=== PATIENT | female | born 1955 | race Caucasian/White ===

== ENCOUNTER 2018-04-02 19:29 | Emergency (ER) | payer OTHER ==
[~2018-04-02] VITALS: Ht 162.6 cm; Wt 84.0 kg
[~2018-04-02 19:29] MED LIST: AMI2 PO; ASPI-1159 PO; ATOR-2 PO; CARV3.1242 PO; CLOP75TA33 PO; FENO145 PO; FURO-151 PO; GLIM4TAB2 PO; LEVO50TA PO; LISI2.5T47 PO; METF500T PO; POTA10TA15 PO
[2018-04-02] MEDS ORDERED: PREDNISONE 20MG TABLET PO STA (22:04)
[2018-04-02] MEDS ORDERED: IPRATROPIUM/ALBUTEROL 0.5-3(2.5)MG/3ML NEB HHN ONE (22:15)
[2018-04-02 23:05] LABS: BASOPHILS % 0.9 % (0.0-2.0); EOSINOPHILS % 2.6 % (0.0-5.0); HEMATOCRIT. 30.5 % (36.0-48.0); LYMPHOCYTES % 28.5 % (20.0-50.0); MEAN CORPUSCULAR HEMOGLOBIN 26.6 pg (28.0-32.0); MEAN CORPUSCULAR VOLUME 81.6 fL (81.0-99.0); MEAN PLATELET VOLUME 9.6 fl (7.4-10.4); MONOCYTES % 7.2 % (2.0-8.0); NEUTROPHILS % 60.8 % (40.0-76.0); PLATELET 419 x1000/uL (130-400); RED BLOOD CELL COUNT 3.75 mill/uL (4.2-5.4); RED CELL DISTRIBUTION WIDTH 16.1 % (11.6-14.6)
[2018-04-02 23:09] LABS: CHLORIDE 101 mEq/L (98-107)
[2018-04-02 23:11] LABS: INR 1.1; PARTIAL THROMBOPLASTIN TIME 29.9 sec (23.4-31.0); PROTHROMBIN TIME 11.2 sec (9.1-11.1)
[2018-04-03 01:08] VITALS: BP 116/59
[2018-04-03 03:19] LABS: CLARITY URINE CLEAR (CLEAR); COLOR URINE YELLOW (YELLOW); KETONES URINE NEGATIVE (NEGATIVE); LEUKOCYTE ESTERASE URINE 2+ (NEGATIVE); NITRITE URINE NEGATIVE (NEGATIVE); OCCULT BLOOD URINE NEGATIVE (NEGATIVE); PROTEIN URINE NEGATIVE (NEGATIVE); SPECIFIC GRAVITY URINE 1.009 (1.005-1.030); UROBILINOGEN URINE 0.2 E.U./dL (0.2-1.0)
== END 2018-04-03 01:11 | disposition home or self-care (01) ==
LOC: ER 19:50
DX: J40 Bronchitis, not specified as acute or chronic (principal); E11.9 Type 2 diabetes mellitus without complications; I10 Essential (primary) hypertension; I25.10 Atherosclerotic heart disease of native coronary artery without angina pectoris; Z79.82 Long term (current) use of aspirin; Z79.899 Other long term (current) drug therapy; Z79.84 Long term (current) use of oral hypoglycemic drugs
CPT/HCPCS: 36415; 71045; 80053; 81003; 83880; 84484; 85025; 85610; 85730; 93005; 94640; 99284; J7512; J7620

== ENCOUNTER 2019-01-04 22:06 | Inpatient (IN) | payer OTHER ==
[~2019-01-04] VITALS: Ht 162.6 cm; Wt 86.2 kg
[~2019-01-04 22:06] MED LIST changes: -ASPI-1159 PO; +ASPI-1393 PO
[2019-01-04 23:50] LABS: BASOPHILS % 0.7 % (0.0-2.0); CHLORIDE 104 mEq/L (98-107); EOSINOPHILS % 0.5 % (0.0-5.0); HEMATOCRIT. 31.7 % (36.0-48.0); HEMOGLOBIN. 10.5 g/dL (12.0-16.0); LYMPHOCYTES % 11.1 % (20.0-50.0); MEAN CORPUSCULAR HEMOGLOBIN 27.8 pg (28.0-32.0); MEAN CORPUSCULAR VOLUME 84.3 fL (81.0-99.0); MEAN PLATELET VOLUME 10.6 fl (7.4-10.4); MONOCYTES % 5.1 % (2.0-8.0); NEUTROPHILS % 82.6 % (40.0-76.0); PLATELET 302 x1000/uL (130-400); RED BLOOD CELL COUNT 3.77 mill/uL (4.2-5.4); RED CELL DISTRIBUTION WIDTH 15.5 % (11.6-14.6)
[2019-01-05] MEDS ORDERED: FUROSEMIDE 20MG/2ML VIAL IVP NR (01:00)
[2019-01-05] MEDS ORDERED: MORPHINE SULFATE 2 MG/ML CPJ (NOT FOR IM USE) IV PRN (12:00)
[2019-01-05 15:40] VITALS: BP 130/53
[2019-01-05] MEDS ORDERED: CRES10 MT (16:02)
[2019-01-05] MEDS ORDERED: NON FORMULARY PATIENT HOME MED XX SCH ×2 (16:30→17:00)
[2019-01-05] MEDS ORDERED: DEXTROSE 50% WATER 50ML SYRINGE IV PRN (16:30)
[2019-01-05] MEDS ORDERED: CLONIDINE 0.1MG TABLET PO PRN (16:30)
[2019-01-05] MEDS: BLOOD SUGAR DIAGNOSTIC STRIP TEST SCH ×2 (17:43→21:11)
[2019-01-05] MEDS: INSULIN LISPRO 100 UNITS/ML SUBCUT SCH ×2 (17:43→21:40)
[2019-01-05] MEDS: CLOPIDOGREL 75MG TABLET PO SCH (18:03)
[2019-01-05] MEDS: FUROSEMIDE 40MG/4ML VIAL IVP SCH (18:04)
[2019-01-05] MEDS: ASPIRIN 81MG TABLET PO SCH (18:04)
[2019-01-05] MEDS: LISINOPRIL 2.5MG TABLET PO SCH (18:04)
[2019-01-05] MEDS: ENOXAPARIN 40MG/0.4ML SYR SUBCUT SCH (18:05)
[2019-01-05 20:00] VITALS: BP 134/58
[2019-01-05] MEDS: ACETAMINOPHEN 325MG TABLET PO PRN (20:29)
[2019-01-05] MEDS: CARVEDILOL 3.125 MG TABLET PO SCH (21:07)
[2019-01-05] MEDS: ATORVASTATIN CALCIUM 20MG TABLET PO SCH (21:08)
[2019-01-06] VITALS: BP 132/55
[2019-01-06 04:00] VITALS: BP 111/58
[2019-01-06] MEDS: HYDROCODONE/ACETAMINOPHEN 5/325MG TABLET PO PRN (04:50)
[2019-01-06 06:19] LABS: BASOPHILS % 0.5 % (0.0-2.0); EOSINOPHILS % 2.7 % (0.0-5.0); HEMATOCRIT. 27.6 % (36.0-48.0); HEMOGLOBIN. 9.3 g/dL (12.0-16.0); LYMPHOCYTES % 19.3 % (20.0-50.0); MEAN CORPUSCULAR VOLUME 83.1 fL (81.0-99.0); MEAN PLATELET VOLUME 10.2 fl (7.4-10.4); MONOCYTES % 5.7 % (2.0-8.0); NEUTROPHILS % 71.8 % (40.0-76.0); PLATELET 276 x1000/uL (130-400); RED BLOOD CELL COUNT 3.33 mill/uL (4.2-5.4)
[2019-01-06 06:42] LABS: CHLORIDE 105 mEq/L (98-107)
[2019-01-06 07:02] LABS: CREATINE KINASE 47 IU/L (26-192); LDL CHOLESTEROL 54 mg/dL (5-100)
[2019-01-06 07:03] LABS: HDL CHOLESTEROL 82 mg/dL (40-59)
[2019-01-06 07:07] LABS: CREATINE KINASE MB FRACTION < 1.0 ng/mL (0.5-3.6)
[2019-01-06 08:00] VITALS: BP 124/46
[2019-01-06] MEDS: INSULIN LISPRO 100 UNITS/ML SUBCUT SCH ×4 (08:10→21:00)
[2019-01-06] MEDS: BLOOD SUGAR DIAGNOSTIC STRIP TEST SCH ×4 (08:21→21:02)
[2019-01-06] MEDS: ASPIRIN 81MG TABLET PO SCH (09:24)
[2019-01-06] MEDS: LISINOPRIL 2.5MG TABLET PO SCH (09:24)
[2019-01-06] MEDS: GLIMEPIRIDE 2MG TABLET PO SCH (09:24)
[2019-01-06] MEDS: CLOPIDOGREL 75MG TABLET PO SCH (09:25)
[2019-01-06] MEDS: FENOFIBRATE NANOCRYSTALLIZED 145MG TABLET PO SCH (09:26)
[2019-01-06] MEDS: LEVOTHYROXINE SODIUM 50MCG TABLET PO SCH (09:26)
[2019-01-06] MEDS: FUROSEMIDE 40MG/4ML VIAL IVP SCH ×2 (09:26→17:39)
[2019-01-06] MEDS: AMIODARONE HCL 200 MG TABLET PO SCH (09:26)
[2019-01-06] MEDS: CARVEDILOL 3.125 MG TABLET PO SCH ×2 (09:26→20:55)
[2019-01-06] MEDS: AMOXICILLIN/POTASSIUM CLAVULANATE 875/125MG TAB PO SCH (11:20)
[2019-01-06] MEDS: ACETAMINOPHEN 325MG TABLET PO PRN (11:21)
[2019-01-06 12:00] VITALS: BP 117/37
[2019-01-06] MEDS ORDERED: POTASSIUM CHLORIDE 20MEQ TABLET SR PO NR (13:45)
[2019-01-06 16:00] VITALS: BP 102/46
[2019-01-06] MEDS: ENOXAPARIN 40MG/0.4ML SYR SUBCUT SCH (17:39)
[2019-01-06 20:00] VITALS: BP 112/57
[2019-01-06] MEDS: ATORVASTATIN CALCIUM 20MG TABLET PO SCH (20:55)
[2019-01-07] VITALS: BP 109/50
[2019-01-07] MEDS: AMOXICILLIN/POTASSIUM CLAVULANATE 875/125MG TAB PO SCH ×2 (00:14→13:50)
[2019-01-07 04:00] VITALS: BP 108/52
[2019-01-07 05:36] VITALS: BP 115/52
[2019-01-07] MEDS: HYDROCODONE/ACETAMINOPHEN 5/325MG TABLET PO PRN (06:20)
[2019-01-07 06:35] LABS: BASOPHILS % 0.8 % (0.0-2.0); EOSINOPHILS % 5.2 % (0.0-5.0); HEMATOCRIT. 29.4 % (36.0-48.0); HEMOGLOBIN. 9.8 g/dL (12.0-16.0); MEAN CORPUSCULAR HEMOGLOBIN 27.9 pg (28.0-32.0); MEAN CORPUSCULAR VOLUME 83.5 fL (81.0-99.0); MEAN PLATELET VOLUME 9.9 fl (7.4-10.4); MONOCYTES % 6.6 % (2.0-8.0); NEUTROPHILS % 62.4 % (40.0-76.0); PLATELET 300 x1000/uL (130-400); RED BLOOD CELL COUNT 3.52 mill/uL (4.2-5.4)
[2019-01-07] MEDS: BLOOD SUGAR DIAGNOSTIC STRIP TEST SCH ×2 (07:40→12:40)
[2019-01-07 08:00] VITALS: BP 137/57
[2019-01-07] MEDS: INSULIN LISPRO 100 UNITS/ML SUBCUT SCH ×2 (08:10→13:10)
[2019-01-07] MEDS: GLIMEPIRIDE 2MG TABLET PO SCH (08:45)
[2019-01-07] MEDS: LEVOTHYROXINE SODIUM 50MCG TABLET PO SCH (08:45)
[2019-01-07] MEDS: CLOPIDOGREL 75MG TABLET PO SCH (08:45)
[2019-01-07] MEDS: FENOFIBRATE NANOCRYSTALLIZED 145MG TABLET PO SCH (08:46)
[2019-01-07] MEDS: AMIODARONE HCL 200 MG TABLET PO SCH (08:46)
[2019-01-07] MEDS: FUROSEMIDE 40MG/4ML VIAL IVP SCH (08:46)
[2019-01-07] MEDS: CARVEDILOL 3.125 MG TABLET PO SCH (08:46)
[2019-01-07] MEDS: LISINOPRIL 2.5MG TABLET PO SCH (08:46)
[2019-01-07] MEDS: ASPIRIN 81MG TABLET PO SCH (08:47)
[2019-01-07] MEDS ORDERED: POTASSIUM CHLORIDE 20MEQ TABLET SR PO SCH (09:00)
[2019-01-07 09:26] LABS: CHLORIDE 106 mEq/L (98-107)
[2019-01-07 12:00] VITALS: BP 106/52
[2019-01-07 15:11] VITALS: BP 108/52
== END 2019-01-07 16:10 | disposition home or self-care (01) | DRG 291 ==
LOC: ER 22:06 → 7WST 01-05 02:12 → EDBEDREQ 01-05 02:14 → EDBEDREQTM 01-05 02:14 → ENRESERV 01-05 14:50
PROVIDERS: ADMIT Internal Medicine; ATTEND Internal Medicine
DX: I11.0 Hypertensive heart disease with heart failure (principal); I50.21 Acute systolic (congestive) heart failure; E46 Unspecified protein-calorie malnutrition; E03.9 Hypothyroidism, unspecified; E11.9 Type 2 diabetes mellitus without complications; E78.5 Hyperlipidemia, unspecified; E87.5 Hyperkalemia; I25.10 Atherosclerotic heart disease of native coronary artery without angina pectoris; E78.00 Pure hypercholesterolemia, unspecified; J40 Bronchitis, not specified as acute or chronic; Z95.1 Presence of aortocoronary bypass graft; Z79.899 Other long term (current) drug therapy; Z79.82 Long term (current) use of aspirin; Z79.84 Long term (current) use of oral hypoglycemic drugs; I25.2 Old myocardial infarction; Z68.32 Body mass index [BMI] 32.0-32.9, adult
CPT/HCPCS: 36415; 71045; 80048; 80061; 82550; 82553; 82962; 83735; 83880; 84443; 84484; 85379; 93005; 99285; J1650; J1815; J1940; J2270

== ENCOUNTER 2020-01-04 11:46 | Inpatient (IN) | payer MEDICAID, OTHER ==
[~2020-01-04] VITALS: Ht 160 cm; Wt 92.1 kg
[~2020-01-04 11:46] MED LIST changes: -ASPI-1393 PO; +ASPI-1497 PO; -ATOR-2 PO; +CRES10 MT; -FURO-151 PO; -GLIM4TAB2 PO; +GLIM4TAB36 PO; -POTA10TA15 PO
[2020-01-04 12:39] LABS: HEMATOCRIT. 33.6 % (36.0-48.0); HEMOGLOBIN. 10.9 g/dL (12.0-16.0); MEAN CORPUSCULAR HEMOGLOBIN 26.6 pg (28.0-32.0); MEAN CORPUSCULAR VOLUME 82.3 fL (81.0-99.0); MEAN PLATELET VOLUME 9.8 fl (7.4-10.4); PLATELET 320 x1000/uL (130-400); RED BLOOD CELL COUNT 4.09 mill/uL (4.2-5.4); RED CELL DISTRIBUTION WIDTH 15.3 % (11.6-14.6)
[2020-01-04 12:50] LABS: CHLORIDE 100 mEq/L (98-107)
[2020-01-04] MEDS ORDERED: FUROSEMIDE 40MG/4ML VIAL IVP ONE (13:15)
[2020-01-04 13:43] LABS: PLATELET ESTIMATE NORMAL
[2020-01-04] MEDS ORDERED: IPRATROPIUM BROMIDE (0.02%) 0.5MG/2.5ML NEB HHN STA (14:42)
[2020-01-04] MEDS ORDERED: ALBUTEROL (0.083%) 2.5MG/3ML NEB HHN STA (14:42)
[2020-01-04] MEDS: ASPIRIN 81MG TABLET PO SCH (16:41)
[2020-01-04] MEDS: CLOPIDOGREL 75MG TABLET PO SCH (16:41)
[2020-01-04] MEDS: LISINOPRIL 2.5MG TABLET PO SCH (17:00)
[2020-01-04] MEDS: FUROSEMIDE 40MG/4ML VIAL IVP SCH (17:07)
[2020-01-04] MEDS ORDERED: GUAIFENESIN 200MG/10ML SUGAR FREE UDC PO PRN (17:30)
[2020-01-04] MEDS ORDERED: MAGNESIUM/ALUMINUM HYDROXIDE/SIMETHICONE 30ML UDC PO PRN (17:30)
[2020-01-04] MEDS ORDERED: NA PHOS,M-B/NA PHOS,DI-BA ENEMA 118ML PR PRN (17:30)
[2020-01-04] MEDS ORDERED: IPRATROPIUM/ALBUTEROL 0.5-3(2.5)MG/3ML NEB NEB PRN (17:30)
[2020-01-04] MEDS ORDERED: DOCUSATE SODIUM 100MG CAPSULE PO PRN (17:30)
[2020-01-04] MEDS ORDERED: DIPHENHYDRAMINE 50MG/ML VIAL IV PRN (17:30)
[2020-01-04] MEDS ORDERED: ONDANSETRON HCL 4MG/2ML INJ IV PRN (17:30)
[2020-01-04] MEDS: METHYLPREDNISOLONE SOD SUCC 125 MG/2 ML VIAL IV SCH (17:30)
[2020-01-04] MEDS ORDERED: LORAZEPAM 2MG/ML CPJ IV PRN (17:30)
[2020-01-04] MEDS ORDERED: MORPHINE SULFATE 2 MG/ML CPJ (NOT FOR IM USE) IV PRN (17:30)
[2020-01-04] MEDS ORDERED: ACETAMINOPHEN 325MG TABLET PO PRN (17:30)
[2020-01-04] MEDS ORDERED: HYDROCODONE/ACETAMINOPHEN 5/325MG TABLET PO PRN (17:30)
[2020-01-04] MEDS ORDERED: CLONIDINE 0.1MG TABLET PO PRN (17:30)
[2020-01-04] MEDS ORDERED: LEVOFLOXACIN 500MG PREMIX 100 ML IV SCH (18:00)
[2020-01-04] MEDS: CARVEDILOL 3.125 MG TABLET PO SCH (21:00)
[2020-01-04] MEDS: ENOXAPARIN 30MG/0.3ML SYR SUBCUT SCH (21:33)
[2020-01-04 22:15] VITALS: BP 129/61
[2020-01-04] MEDS ORDERED: EZET1TAB MT (23:59)
[2020-01-04] MEDS ORDERED: FENO145 MT (23:59)
[2020-01-05] VITALS: BP 113/55
[2020-01-05] MEDS ORDERED: FURO40TA5 PO (00:01)
[2020-01-05] MEDS ORDERED: POTA-9 MT (00:02)
[2020-01-05] MEDS: METHYLPREDNISOLONE SOD SUCC 125 MG/2 ML VIAL IV SCH ×2 (00:14→05:05)
[2020-01-05] MEDS ORDERED: DEXTROSE 50% WATER 50ML SYRINGE IV PRN (02:45)
[2020-01-05 04:00] VITALS: BP 111/46
[2020-01-05] MEDS: BLOOD SUGAR DIAGNOSTIC STRIP TEST SCH ×2 (06:30→11:40)
[2020-01-05] MEDS: INSULIN LISPRO 100 UNITS/ML SUBCUT SCH ×2 (06:37→12:23)
[2020-01-05] MEDS: FUROSEMIDE 40MG/4ML VIAL IVP SCH (06:38)
[2020-01-05 07:31] LABS: HEMATOCRIT. 30.1 % (36.0-48.0); HEMOGLOBIN. 9.9 g/dL (12.0-16.0); MEAN PLATELET VOLUME 10.4 fl (7.4-10.4); PLATELET 286 x1000/uL (130-400); RED BLOOD CELL COUNT 3.67 mill/uL (4.2-5.4); RED CELL DISTRIBUTION WIDTH 15.4 % (11.6-14.6)
[2020-01-05 07:46] LABS: CHLORIDE 99 mEq/L (98-107)
[2020-01-05 07:55] LABS: LDL CHOLESTEROL 55 mg/dL (5-100)
[2020-01-05 07:56] LABS: HDL CHOLESTEROL 98 mg/dL (40-59); T4 FREE 1.65 ng/dL (0.76-1.46)
[2020-01-05 08:00] VITALS: BP 114/44
[2020-01-05] MEDS: CARVEDILOL 3.125 MG TABLET PO SCH (08:31)
[2020-01-05] MEDS: LISINOPRIL 2.5MG TABLET PO SCH (08:31)
[2020-01-05] MEDS: ASPIRIN 81MG TABLET PO SCH (08:31)
[2020-01-05] MEDS: CLOPIDOGREL 75MG TABLET PO SCH (08:31)
[2020-01-05] MEDS: ENOXAPARIN 30MG/0.3ML SYR SUBCUT SCH (08:32)
[2020-01-05] MEDS ORDERED: ASPIRIN 81MG EC TABLET PO SCH (09:00)
[2020-01-05 10:47] LABS: PLATELET ESTIMATE NORMAL
[2020-01-05 12:00] VITALS: BP 121/45
[2020-01-05 13:20] VITALS: BP 121/45
[2020-01-05] MEDS ORDERED: LEVOFLOXACIN 500MG PREMIX 100 ML IV SCH (18:00)
[2020-01-06] MEDS ORDERED: LEVOFLOXACIN 500MG TABLET PO SCH (11:00)
== END 2020-01-05 14:20 | disposition home or self-care (01) | DRG 133 ==
LOC: ER 11:54 → 5WST 15:32 → ENRESERV 21:41
PROVIDERS: ADMIT Internal Medicine; ATTEND Internal Medicine
DX: J96.00 Acute respiratory failure, unspecified whether with hypoxia or hypercapnia (principal); J44.1 Chronic obstructive pulmonary disease with (acute) exacerbation; I50.33 Acute on chronic diastolic (congestive) heart failure; R65.10 Systemic inflammatory response syndrome (SIRS) of non-infectious origin without acute organ dysfunction; E78.5 Hyperlipidemia, unspecified; E03.9 Hypothyroidism, unspecified; I11.0 Hypertensive heart disease with heart failure; E11.9 Type 2 diabetes mellitus without complications; I25.10 Atherosclerotic heart disease of native coronary artery without angina pectoris; I25.5 Ischemic cardiomyopathy; Z82.3 Family history of stroke; Z82.49 Family history of ischemic heart disease and other diseases of the circulatory system; Z95.1 Presence of aortocoronary bypass graft; Z79.82 Long term (current) use of aspirin; Z79.84 Long term (current) use of oral hypoglycemic drugs; Z79.899 Other long term (current) drug therapy; Z98.51 Tubal ligation status
CPT/HCPCS: 36415; 71045; 71046; 80048; 80053; 80061; 82962; 83036; 83735; 83880; 84439; 84443; 84484; 85025; 93005; 93306; J1200; J1650; J1815; J1940; J1956; J2930

== ENCOUNTER 2020-07-03 13:24 | Inpatient (IN) | payer MEDICAID, OTHER ==
[~2020-07-03] VITALS: Ht 160 cm; Wt 90.3 kg
[~2020-07-03 13:24] MED LIST changes: +EZET1TAB MT; +FURO40TA5 PO; +POTA-9 MT
[2020-07-03] MEDS ORDERED: IPRATROPIUM/ALBUTEROL 0.5-3(2.5)MG/3ML NEB HHN ONE (14:15)
[2020-07-03 14:49] LABS: BASOPHILS % 0.8 % (0.0-2.0); EOSINOPHILS % 2.7 % (0.0-5.0); HEMATOCRIT. 30.9 % (36.0-48.0); HEMOGLOBIN. 9.9 g/dL (12.0-16.0); LYMPHOCYTES % 25.5 % (20.0-50.0); MEAN CORPUSCULAR VOLUME 80.9 fL (81.0-99.0); MEAN PLATELET VOLUME 9.8 fl (7.4-10.4); MONOCYTES % 5.7 % (2.0-8.0); NEUTROPHILS % 65.3 % (40.0-76.0); PLATELET 312 x1000/uL (130-400); RED BLOOD CELL COUNT 3.82 mill/uL (4.2-5.4); RED CELL DISTRIBUTION WIDTH 16.5 % (11.6-14.6)
[2020-07-03 14:50] LABS: CHLORIDE 104 mEq/L (98-107)
[2020-07-03] MEDS ORDERED: FUROSEMIDE 40MG/4ML VIAL IVP ONE (15:30)
[2020-07-03 21:31] VITALS: BP 149/74
[2020-07-03] MEDS ORDERED: DIPHENHYDRAMINE 50MG/ML VIAL IV PRN (21:45)
[2020-07-03] MEDS ORDERED: DEXTROSE 50% WATER 50ML SYRINGE IV PRN (21:45)
[2020-07-03] MEDS ORDERED: HYDRALAZINE 20MG/ML VIAL IV PRN (21:45)
[2020-07-03] MEDS ORDERED: MORPHINE SULFATE 2 MG/ML CPJ (NOT FOR IM USE) IV PRN (21:45)
[2020-07-03] MEDS ORDERED: HYDROCODONE/ACETAMINOPHEN 5/325MG TABLET PO PRN (21:45)
[2020-07-03] MEDS ORDERED: CLONIDINE 0.1MG TABLET PO PRN (21:45)
[2020-07-03] MEDS ORDERED: IPRATROPIUM/ALBUTEROL 0.5-3(2.5)MG/3ML NEB HHN PRN (21:45)
[2020-07-03] MEDS ORDERED: ONDANSETRON HCL 4MG/2ML INJ IV PRN (21:45)
[2020-07-03] MEDS ORDERED: DOCUSATE SODIUM 100MG CAPSULE PO PRN (21:45)
[2020-07-03] MEDS ORDERED: GUAIFENESIN 200MG/10ML SUGAR FREE UDC PO PRN (21:45)
[2020-07-03] MEDS ORDERED: MAGNESIUM/ALUMINUM HYDROXIDE/SIMETHICONE 30ML UDC PO PRN (21:45)
[2020-07-03 22:00] VITALS: BP 149/54
[2020-07-03] MEDS: SODIUM CHLORIDE 0.9% INJ 3ML FLUSH IVF SCH (22:36)
[2020-07-03] MEDS: ENOXAPARIN 30MG/0.3ML SYR SUBCUT SCH (22:36)
[2020-07-04] VITALS (7 sets, daily range): BP systolic 103–135; BP diastolic 42–59
[2020-07-04 00:25] LABS: CREATINE KINASE 70 IU/L (26-192)
[2020-07-04 00:26] LABS: CREATINE KINASE MB FRACTION < 1.0 ng/mL (0.5-3.6)
[2020-07-04] MEDS: LORAZEPAM 2MG/ML CPJ IV PRN ×2 (01:53→22:47)
[2020-07-04 05:53] LABS: EOSINOPHILS % 3.7 % (0.0-5.0); HEMATOCRIT. 29.9 % (36.0-48.0); HEMOGLOBIN. 9.7 g/dL (12.0-16.0); MEAN CORPUSCULAR HEMOGLOBIN 26.2 pg (28.0-32.0); MEAN CORPUSCULAR VOLUME 80.7 fL (81.0-99.0); MONOCYTES % 7.5 % (2.0-8.0); NEUTROPHILS % 54.8 % (40.0-76.0); PLATELET 293 x1000/uL (130-400); RED BLOOD CELL COUNT 3.71 mill/uL (4.2-5.4); RED CELL DISTRIBUTION WIDTH 16.2 % (11.6-14.6)
[2020-07-04 06:03] LABS: CHLORIDE 104 mEq/L (98-107)
[2020-07-04 06:17] LABS: CREATINE KINASE 64 IU/L (26-192)
[2020-07-04 06:20] LABS: CREATINE KINASE MB FRACTION < 1.0 ng/mL (0.5-3.6)
[2020-07-04] MEDS: BLOOD SUGAR DIAGNOSTIC STRIP TEST SCH ×4 (06:58→21:33)
[2020-07-04] MEDS: SODIUM CHLORIDE 0.9% INJ 3ML FLUSH IVF SCH ×3 (06:58→21:45)
[2020-07-04] MEDS: INSULIN LISPRO 100 UNITS/ML SUBCUT SCH ×4 (07:50→21:00)
[2020-07-04] MEDS: FUROSEMIDE 40MG/4ML VIAL IVP SCH (08:47)
[2020-07-04] MEDS: ENOXAPARIN 30MG/0.3ML SYR SUBCUT SCH ×2 (09:40→21:28)
[2020-07-04] MEDS ORDERED: POTASSIUM CHLORIDE 20MEQ TABLET SR PO NR ×2 (12:15→17:00)
[2020-07-04] MEDS: ACETAMINOPHEN 325MG TABLET PO PRN ×2 (17:34→18:43)
[2020-07-05 04:07] VITALS: BP 125/45
[2020-07-05] MEDS: INSULIN LISPRO 100 UNITS/ML SUBCUT SCH ×2 (06:10→12:50)
[2020-07-05] MEDS: SODIUM CHLORIDE 0.9% INJ 3ML FLUSH IVF SCH (06:10)
[2020-07-05] MEDS: BLOOD SUGAR DIAGNOSTIC STRIP TEST SCH ×2 (06:10→12:58)
[2020-07-05 06:54] LABS: BASOPHILS % 1.2 % (0.0-2.0); EOSINOPHILS % 5.1 % (0.0-5.0); HEMATOCRIT. 30.9 % (36.0-48.0); LYMPHOCYTES % 33.2 % (20.0-50.0); MEAN CORPUSCULAR HEMOGLOBIN 26.3 pg (28.0-32.0); MEAN CORPUSCULAR VOLUME 81.7 fL (81.0-99.0); MONOCYTES % 7.5 % (2.0-8.0); PLATELET 310 x1000/uL (130-400); RED BLOOD CELL COUNT 3.79 mill/uL (4.2-5.4); RED CELL DISTRIBUTION WIDTH 16.5 % (11.6-14.6)
[2020-07-05 08:00] VITALS: BP 122/52
[2020-07-05] MEDS: FUROSEMIDE 40MG/4ML VIAL IVP SCH (09:30)
[2020-07-05] MEDS: ENOXAPARIN 30MG/0.3ML SYR SUBCUT SCH (09:32)
[2020-07-05 10:16] VITALS: BP 122/52
== END 2020-07-05 14:51 | disposition home or self-care (01) | DRG 194 ==
LOC: ER 14:08 → 6WST 17:18 → ENRESERV 19:22 → 6WST 22:00
PROVIDERS: ADMIT Internal Medicine; ATTEND Internal Medicine
DX: I11.0 Hypertensive heart disease with heart failure (principal); J96.00 Acute respiratory failure, unspecified whether with hypoxia or hypercapnia; I50.33 Acute on chronic diastolic (congestive) heart failure; D64.9 Anemia, unspecified; E03.9 Hypothyroidism, unspecified; E11.9 Type 2 diabetes mellitus without complications; E78.5 Hyperlipidemia, unspecified; E87.6 Hypokalemia; I25.5 Ischemic cardiomyopathy; G43.909 Migraine, unspecified, not intractable, without status migrainosus; I25.10 Atherosclerotic heart disease of native coronary artery without angina pectoris; Z79.82 Long term (current) use of aspirin; Z79.899 Other long term (current) drug therapy; I25.2 Old myocardial infarction; Z95.1 Presence of aortocoronary bypass graft
CPT/HCPCS: 36415; 71045; 80048; 80053; 82550; 82553; 82962; 83036; 83880; 84443; 84484; 85025; 93306; 93970; 94640; 99285; J1200; J1650; J1940; J2060

== ENCOUNTER 2021-05-20 05:02 | Emergency (ER) | payer MEDICAID, OTHER ==
[~2021-05-20] VITALS: Ht 162.6 cm; Wt 73.0 kg
[~2021-05-20 05:02] MED LIST changes: +EZET-55 MT; -EZET1TAB MT
[2021-05-20 05:47] LABS: HEMATOCRIT. 31.8 % (36.0-48.0); HEMOGLOBIN. 10.3 g/dL (12.0-16.0); MEAN CORPUSCULAR HEMOGLOBIN 26.6 pg (28.0-32.0); MEAN CORPUSCULAR VOLUME 82.2 fL (81.0-99.0); MEAN PLATELET VOLUME 9.7 fl (7.4-10.4); PLATELET 322 x1000/uL (130-400); RED BLOOD CELL COUNT 3.87 mill/uL (4.2-5.4); RED CELL DISTRIBUTION WIDTH 14.2 % (11.6-14.6)
[2021-05-20 05:56] LABS: CHLORIDE 101 mEq/L (98-107)
[2021-05-20 06:55] LABS: PLATELET ESTIMATE NORMAL
[2021-05-20] MEDS ORDERED: FUROSEMIDE 40MG/4ML VIAL IVP SCH (07:00)
[2021-05-20 12:05] VITALS: BP 148/66
== END 2021-05-20 12:39 | disposition home or self-care (01) ==
LOC: ER 05:02
DX: J96.00 Acute respiratory failure, unspecified whether with hypoxia or hypercapnia (principal); I11.0 Hypertensive heart disease with heart failure; I50.9 Heart failure, unspecified; I25.2 Old myocardial infarction; E11.9 Type 2 diabetes mellitus without complications; Z20.822 Contact with and (suspected) exposure to COVID-19; Z95.1 Presence of aortocoronary bypass graft; Z79.84 Long term (current) use of oral hypoglycemic drugs; Z79.82 Long term (current) use of aspirin
CPT/HCPCS: 36415; 71045; 80053; 83880; 84484; 85025; 87426; 93005; 96374; 99285; J1940

== ENCOUNTER 2021-07-29 07:16 | Inpatient (IN) | payer MEDICAID ==
[~2021-07-29] VITALS: Ht 157.5 cm; Wt 103.9 kg
[2021-07-29 08:34] LABS: EOSINOPHILS % 0.7 % (0.0-5.0); HEMATOCRIT. 35.1 % (36.0-48.0); HEMOGLOBIN. 11.1 g/dL (12.0-16.0); LYMPHOCYTES % 12.4 % (20.0-50.0); MEAN CORPUSCULAR HEMOGLOBIN 23.6 pg (28.0-32.0); MEAN CORPUSCULAR VOLUME 74.5 fL (81.0-99.0); MONOCYTES % 6.1 % (2.0-8.0); NEUTROPHILS % 79.8 % (40.0-76.0); PLATELET 435 x1000/uL (130-400); RED BLOOD CELL COUNT 4.71 mill/uL (4.2-5.4); RED CELL DISTRIBUTION WIDTH 17.9 % (11.6-14.6)
[2021-07-29 08:41] LABS: CHLORIDE 99 mEq/L (98-107)
[2021-07-29] MEDS ORDERED: FUROSEMIDE 40MG/4ML VIAL IV ONE (09:15)
[2021-07-29] MEDS: ASPIRIN 81MG TABLET PO ONE ×2 (10:13→10:31)
[2021-07-29] MEDS ORDERED: ACETAMINOPHEN 325MG TABLET PO PRN (11:45)
[2021-07-29] MEDS ORDERED: ONDANSETRON HCL 4MG/2ML INJ IV PRN (11:45)
[2021-07-29] MEDS: POTASSIUM CHLORIDE 20MEQ TABLET SR PO SCH (14:43)
[2021-07-29] MEDS: METOPROLOL TARTRATE 25MG TABLET PO SCH (14:46)
[2021-07-29] MEDS ORDERED: FUROSEMIDE 40MG/4ML VIAL IVP SCH (15:00)
[2021-07-29] MEDS: FUROSEMIDE 40MG/4ML VIAL IVP SCH (18:13)
[2021-07-29] MEDS: APIXABAN 5 MG TABLET PO SCH (18:14)
[2021-07-29] MEDS: IPRATROPIUM/ALBUTEROL 0.5-3(2.5)MG/3ML NEB HHN PRN (23:33)
[2021-07-30] VITALS (8 sets, daily range): BP systolic 98–149; BP diastolic 56–81
[2021-07-30 08:56] LABS: BASOPHILS % 0.8 % (0.0-2.0); EOSINOPHILS % 0.8 % (0.0-5.0); HEMATOCRIT. 33.3 % (36.0-48.0); HEMOGLOBIN. 10.7 g/dL (12.0-16.0); LYMPHOCYTES % 15.6 % (20.0-50.0); MEAN CORPUSCULAR HEMOGLOBIN 23.9 pg (28.0-32.0); MEAN PLATELET VOLUME 10.2 fl (7.4-10.4); MONOCYTES % 9.3 % (2.0-8.0); NEUTROPHILS % 73.5 % (40.0-76.0); PLATELET 402 x1000/uL (130-400); RED BLOOD CELL COUNT 4.49 mill/uL (4.2-5.4); RED CELL DISTRIBUTION WIDTH 17.8 % (11.6-14.6)
[2021-07-30] MEDS ORDERED: ASPIRIN 81MG TABLET PO SCH (09:00)
[2021-07-30 09:10] LABS: CHLORIDE 104 mEq/L (98-107)
[2021-07-30] MEDS: METOPROLOL TARTRATE 25MG TABLET PO SCH (09:55)
[2021-07-30] MEDS: FUROSEMIDE 40MG/4ML VIAL IVP SCH ×2 (09:55→19:00)
[2021-07-30] MEDS: POTASSIUM CHLORIDE 20MEQ TABLET SR PO SCH (09:56)
[2021-07-30] MEDS: APIXABAN 5 MG TABLET PO SCH ×2 (09:56→19:01)
[2021-07-30] MEDS: IPRATROPIUM/ALBUTEROL 0.5-3(2.5)MG/3ML NEB HHN PRN (18:44)
== END 2021-07-30 20:50 | disposition home or self-care (01) | DRG 194 ==
LOC: ER 07:25 → EDBEDREQ 08:06 → MICUSO 11:10 → EDBEDREQ 11:16 → EDBEDREQTM 11:16 → 6WST 07-30 01:49
PROVIDERS: ADMIT Internal Medicine; ATTEND Internal Medicine
DX: I13.0 Hypertensive heart and chronic kidney disease with heart failure and stage 1 through stage 4 chronic kidney disease, or unspecified chronic kidney disease (principal); N17.0 Acute kidney failure with tubular necrosis; I27.20 Pulmonary hypertension, unspecified; E87.1 Hypo-osmolality and hyponatremia; E11.22 Type 2 diabetes mellitus with diabetic chronic kidney disease; D64.9 Anemia, unspecified; D75.839 Thrombocytosis, unspecified; E03.9 Hypothyroidism, unspecified; E66.9 Obesity, unspecified; E78.00 Pure hypercholesterolemia, unspecified; E78.5 Hyperlipidemia, unspecified; I25.10 Atherosclerotic heart disease of native coronary artery without angina pectoris; I25.5 Ischemic cardiomyopathy; Z20.822 Contact with and (suspected) exposure to COVID-19; I48.0 Paroxysmal atrial fibrillation; I50.23 Acute on chronic systolic (congestive) heart failure; N18.9 Chronic kidney disease, unspecified; Z79.01 Long term (current) use of anticoagulants; Z95.1 Presence of aortocoronary bypass graft; Z68.41 Body mass index [BMI] 40.0-44.9, adult; Z79.82 Long term (current) use of aspirin; Z79.899 Other long term (current) drug therapy; I25.2 Old myocardial infarction; Z71.3 Dietary counseling and surveillance
CPT/HCPCS: 36415; 71045; 80053; 82270; 83735; 83880; 84443; 84484; 85025; 85379; 87426; 93005; 93970; 94640; 99291; J1940

== ENCOUNTER 2021-08-31 10:36 | Emergency (ER) | payer MEDICAID ==
[~2021-08-31] VITALS: Ht 160 cm; Wt 109.0 kg
[2021-08-31 11:50] LABS: BASOPHILS % 0.6 % (0.0-2.0); EOSINOPHILS % 0.6 % (0.0-5.0); HEMATOCRIT. 36.7 % (36.0-48.0); HEMOGLOBIN. 11.8 g/dL (12.0-16.0); LYMPHOCYTES % 12.5 % (20.0-50.0); MEAN CORPUSCULAR HEMOGLOBIN 24.2 pg (28.0-32.0); MEAN CORPUSCULAR VOLUME 75.3 fL (81.0-99.0); MONOCYTES % 6.4 % (2.0-8.0); NEUTROPHILS % 79.9 % (40.0-76.0); PLATELET 437 x1000/uL (130-400); RED BLOOD CELL COUNT 4.87 mill/uL (4.2-5.4); RED CELL DISTRIBUTION WIDTH 20.8 % (11.6-14.6)
[2021-08-31 11:56] LABS: CHLORIDE 103 mEq/L (98-107)
[2021-08-31] MEDS: FUROSEMIDE 40MG/4ML VIAL IVP SCH ×2 (12:03→17:35)
[2021-08-31 15:24] LABS: CLARITY URINE CLOUDY (CLEAR); COLOR URINE YELLOW (YELLOW); KETONES URINE NEGATIVE (NEGATIVE); LEUKOCYTE ESTERASE URINE NEGATIVE (NEGATIVE); NITRITE URINE NEGATIVE (NEGATIVE); OCCULT BLOOD URINE NEGATIVE (NEGATIVE); PH URINE 6.5 (4.5-8.0); PROTEIN URINE NEGATIVE (NEGATIVE); SPECIFIC GRAVITY URINE 1.008 (1.005-1.030); UROBILINOGEN URINE 0.2 E.U./dL (0.2-1.0)
[2021-08-31 17:18] LABS: INR 1.2; PROTHROMBIN TIME 12.9 sec (9.6-11.0)
[2021-08-31] MEDS ORDERED: ATORVASTATIN CALCIUM 20MG TABLET PO SCH (21:00)
[2021-08-31] MEDS ORDERED: METOPROLOL TARTRATE 25MG TABLET PO SCH (21:00)
[2021-09-01 06:16] LABS: BASOPHILS % 0.7 % (0.0-2.0); HEMOGLOBIN. 10.6 g/dL (12.0-16.0); LYMPHOCYTES % 10.6 % (20.0-50.0); MEAN CORPUSCULAR HEMOGLOBIN 23.8 pg (28.0-32.0); MEAN CORPUSCULAR VOLUME 73.8 fL (81.0-99.0); MEAN PLATELET VOLUME 9.7 fl (7.4-10.4); MONOCYTES % 8.8 % (2.0-8.0); NEUTROPHILS % 78.9 % (40.0-76.0); PLATELET 410 x1000/uL (130-400); RED BLOOD CELL COUNT 4.47 mill/uL (4.2-5.4); RED CELL DISTRIBUTION WIDTH 20.9 % (11.6-14.6)
[2021-09-01 08:08] LABS: HEPATITIS B SURFACE ANTIGEN NEGATIVE
[2021-09-01 08:24] VITALS: BP 122/64
[2021-09-01] MEDS ORDERED: LISINOPRIL 2.5MG TABLET PO SCH (09:00)
== END 2021-09-01 09:25 | disposition short-term general hospital (02) ==
LOC: ER 10:36
DX: R60.1 Generalized edema (principal); I11.0 Hypertensive heart disease with heart failure; I50.9 Heart failure, unspecified; I48.91 Unspecified atrial fibrillation; I25.2 Old myocardial infarction; Z98.51 Tubal ligation status; Z79.899 Other long term (current) drug therapy
CPT/HCPCS: 36415; 71045; 74176; 76705; 80048; 80053; 80076; 81003; 82140; 82962; 83690; 83735; 83880; 84484; 85025; 85610; 86705; 86709; 86803; 87340; 93005; 96374; 99285; J1940